=== PATIENT | female | born 1990 | race Asian ===

== ENCOUNTER → 2018-04-27 12:18 | Outpatient (CLI) | payer OTHER, SELFPAY ==
[2018-04-27 13:37] LABS: Hematocrit 37.5 % (36-46); Hemoglobin 12.6 g/dL (12.0-16.0)
[2018-04-27 13:59] LABS: GTT (PREG) 1 Hour PP 50gm Dose 122 mg/dL (76-139)
== END ==
PROVIDERS: PCP Obstetrics & Gynecology; Visit Provider Obstetrics & Gynecology
DX: Z34.02 Encounter for supervision of normal first pregnancy, second trimester (principal)
CPT/HCPCS: 36415; 82950; 85014; 85018

== ENCOUNTER → 2018-06-15 08:43 | Outpatient (CLI) | payer OTHER, SELFPAY ==
[2018-06-16 12:52] LABS: Strep Grp B PCR NEG for Grp B Strep
== END ==
PROVIDERS: PCP Obstetrics & Gynecology; Visit Provider Obstetrics & Gynecology
DX: Z34.03 Encounter for supervision of normal first pregnancy, third trimester (principal)
CPT/HCPCS: 87653

== ENCOUNTER 2018-07-14 18:07 | Inpatient (IN) | payer OTHER, SELFPAY ==
[2018-07-14] MEDS: miSOPROStol 25 MCG TABLET VAG (19:32)
[2018-07-14 21:29] LABS: Add Manual Diff / Slide Review NO; Basophils Percent Auto 0.7 % (0-2); Eosinophils Percent Auto 1.7 % (2-4); Hematocrit 39.8 % (36-46); Hemoglobin 13.4 g/dL (12.0-16.0); Lymphocytes Percent Auto 19.4 % (25-40); Mean Corpuscular HGB Conc 33.6 % (30-36); Mean Corpuscular Hemoglobin 30.1 PG (26-34); Mean Corpuscular Volume 89.6 fL (80-100); Monocytes Percent Auto 6.6 % (3-14); Neutrophils Absolute Auto 8400 /uL (3000-5900); Neutrophils Percent Auto 71.6 % (50-75); Platelet Count 253 X10^3/uL (150-400); Red Blood Cell Count 4.44 X10^6/uL (4.0-5.2); Red Cell Distribution Width 14.2 % (11.6-14.8); White Blood Cell Count 11.8 X10^3/uL (4.5-11.0)
[2018-07-15] MEDS: MORPHINE 2 MG/ML INJ IV (00:29)
[2018-07-15] MEDS: LEVOTHYROXINE 125 MCG TABLET PO (06:27)
[2018-07-15] MEDS: KETOROLAC 30 MG/ML VIAL IV ×2 (14:44→20:57)
[2018-07-15 16:09] VITALS: BP 110/76
[2018-07-16] MEDS: DERMOPLAST SPRAY 20% 60 ML 1 SPRAY TOP (02:58)
[2018-07-16 02:59] VITALS: TEMP 36.9
[2018-07-16] MEDS: KETOROLAC 30 MG/ML VIAL IV ×2 (02:59→09:10)
[2018-07-16 06:19] LABS: Hematocrit 31.5 % (36-46); Hemoglobin 10.7 g/dL (12.0-16.0)
[2018-07-16] MEDS: CALCITRIOL 0.25 MCG CAPSULE PO (09:11)
[2018-07-16] MEDS: PRENATAL VIT,CALC/IRON/FOLIC 1 TABLET 1 TAB PO (09:12)
[2018-07-16] MEDS: DOCUSATE 250 MG CAPSULE PO (09:12)
[2018-07-16] MEDS: LEVOTHYROXINE 125 MCG TABLET PO (09:12)
[2018-07-17 11:03] VITALS: BP 84/48; PULSE 88; RESP 16; TEMP 36.3
[2018-07-17] MEDS: CALCITRIOL 0.25 MCG CAPSULE PO (11:09)
[2018-07-17] MEDS: DOCUSATE 250 MG CAPSULE PO (11:09)
[2018-07-17] MEDS: PRENATAL VIT,CALC/IRON/FOLIC 1 TABLET 1 TAB PO (11:09)
[2018-07-17] MEDS: IBUPROFEN 600 MG TABLET PO (11:10)
--- NOTE | 2018-08-05 16:28 | PM.OBHP.1 ---
OB HPI Date/Time Date of admission: 07/14/18 Date Patient Seen: 07/15/18 Time Patient Seen: 07:30 History of Present Condition Chief complaint: eval of labor : 1 Para: 0 Estimated Date of Delivery: 07/20/18 Estimated Gestational Age (weeks): 39+ 1 Narrative: Olaf Cortez is a 28 year old female 1 para 0 at 39-,1/7 weeks gestation who presented for cervical ripening with Cytotec Indications Indication for induction OB: other ( ) History of Present care: good care, initiated at week # (9), number of visits (11) and pounds weight gain (38) Dating criteria: LMP confirmed by 1st trimester US Ultrasounds: normal 1st trimester US and normal mid trimester US Obstetrical complications: none Medical complications: none Preadmission Labs Blood type: A (+) positive -: Antibody screen: negative, GBS status: negative, HBsAG: negative, HIV: negative, HSV 1: positive, HSV 2: negative and RPR/VDLR: negative -: Chlamydia screen: not detected and Gonorrhea screen: not detected -: Rubella: immune and Varicella: immune HCT: 37.5 HCAB: negative PAP: Normal Quad screen: Normal Urine: Negative 1 hr GTT: 122 Evaluation Evaluation Baseline heart rate: 135 Variability: Moderate (11-25) monitor accelerations: Present monitor decelerations: Absent Contraction Frequency (minutes): 3 Uterine Contraction Intensity: Strong/Firm Category of Tracing: I Cervical dilation (cm): 9 Cervical effacement (%): 100 station: 0 Laboratory results: Laboratory Tests 07/14/18 07/14/18 07/16/18 21:15 21:15 06:02 WBC 11.8 H RBC 4.44 Hgb 13.4 10.7 L Hct 39.8 31.5 L MCV 89.6 MCH 30.1 MCHC 33.6 RDW 14.2 Plt Count 253 Neut % (Auto) 71.6 Lymph % (Auto) 19.4 L [place] % (Auto) 6.6 Eos % (Auto) 1.7 L Baso % (Auto) 0.7 Neut # (Auto) 8400 H Blood Type A Positive Antibody Screen Negative PFSH Social History Smoking Status: Never smoker Meds Home Medications Medication Instructions Recorded Confirmed Type breast pump #1 each 04/27/18 07/14/18 Rx calcitriol 0.25 mcg PO DAILY 07/14/18 07/14/18 History levothyroxine [Synthroid] 125 mcg PO DAILY 07/14/18 07/15/18 History Allergies Allergy/AdvReac Type Severity Reaction Status Date / Time No Known Drug Allergies Allergy Verified 07/14/18 18:40 Exam Vital Signs (past 8 hours): Generally: A well-developed, well-nourished female, comfortable with epidural Lungs: Clear to auscultation bilaterally Cardiovascular: Regular rate and rhythm Abdomen: Soft Fundal height: 38 cm Extremities: Trace edema, negative Homans Objective Labs Result Diagrams: 07/16/18 06:02 Assessment and Plan (1) 39 weeks gestation of : Current visit: No Status: Acute Plan: Plan: Assessment: 28-year-old 1 para 0 at 39-,2/7 weeks gestation status post 1 dose of Cytotec entering 2nd stage of labor Comfortable with epidural Plan: Expected management to spontaneous vaginal delivery
--- NOTE | 2018-08-05 16:34 | PM.OBPRVD ---
Delivery date: 07/15/18 Induction method: per misoprostol protocol Delivery monitor: external FHT and external uterine Route of delivery: forceps (Laufe) Indication for instrumentation: maternal exhaustion Episiotomy description: None Laceration description: Perineal - 2nd Degree Delivery repair: vicryl and chromic Estimated blood loss (mL): 500 Anesthesia type: Epidural Complications: None Narrative: Patient complete and pushed for 2 hr. Due to maternal exhaustion and head at +1 to +2 station, Laufe forceps were used to assist the delivery. The head delivered at 10:02 a.m.. The forceps were removed. A nuchal cord x1 was reduced on the perineum. No episiotomy. The remainder of the body delivered without difficulty and was placed on mom's abdomen. Pitocin was given in the IV fluids. The cord was double clamped and cut. Cord bloods were obtained. The placenta delivered intact with a 3 vessel cord at 10:20 a.m.. Estimated blood loss 500 cc. Second-degree laceration repaired in the usual fashion. Apgars 8 at 1 min 9 at 5 min. Weight 6 lb 10 oz. . Epidural analgesia. Mom and stable to recovery. Plan for aftercare: To routine care
--- NOTE | 2018-08-05 16:38 | PM.OBPN.1 ---
Subjective - OB Patient comments: no complaints baby status: doing well feeding status: exclusively breast feeding Date Patient Seen: 07/16/18 Time Patient Seen: 13:30 Exam Vital Signs (past 8 hours): Generally: Patient is sitting up in bed, holding infant, no acute distress Fundus: Firm at U -2 Extremities: Trace edema, negative Homans Objective Labs Result Diagrams: 07/16/18 06:02 Assessment & Plan (1) 39 weeks gestation of : Status: Acute Current Visit: No (2) Forceps delivery with baby delivered: Status: Acute Assessment and plan: Assessment: 28-year-old 1 para 1 day # 1 status post outlet forceps assisted delivery Mom and baby doing well Plan: Anticipate discharge 06/2018 Current Visit: No Plan day: 1 plan OB: routine care Time Spent With Patient Total time spent is greater than 50% in coordination of care (as documented) at patient's floor/unit and/or counseling patient: less than 15 minutes
--- NOTE | 2018-08-05 16:40 | PM.OBDS.1 ---
Discharge Providers Date of admission: 07/14/18 18:07 Primary care physician: Filomena Howard MD Consults: 07/15/18 12:59 Consult to Construction Technician Routine Comment: Discharge provider: Filomena Howard MD Summary Date Patient Seen: 07/17/18 Time Patient Seen: 09:30 Hospital Course: Patient is a 28-year-old 1 para 1 who presented on 07/14/2018 for cervical ripening with Cytotec. She received 1 dose and went into active labor. She progressed to 2nd stage. Pushed for 2 hr and due to maternal exhaustion outlet forceps were applied. Her post course was unremarkable. She is discharged home on postop day # 2. Peripartum Data Delivery Method: Assisted Delivery (Laufe forceps) Laceration description: Perineal - 2nd Degree Procedures: Outlet assisted forceps delivery Epidural analgesia Cytotec cervical ripening complications: none Discharge Diagnosis (1) 39 weeks gestation of : Status: Acute (2) Forceps delivery with baby delivered: Status: Acute Status at Discharge Functional status at discharge: independent ambulation Overall status at discharge: patient is progressing back to baseline Time Spent with Patient Total time spent providing and/or coordinating discharge services: Less than 30 minutes Objective Labs Result Diagrams: 07/16/18 06:02 Discharge Plan Discharge Plan Patient Disposition: Home Discharge comment: Call with fever, chills or bleeding vaginally more than a pad in an hour Ibuprofen/Tylenol for pain Discharge Med Rec/Prescriptions Prescriptions: No Action breast pump device .Route .MEDSUPPLY Qty: 1 RF: 0 levothyroxine [Synthroid] 125 mcg tablet 125 mcg PO DAILY RF: 0 calcitriol 0.25 mcg capsule 0.25 mcg PO DAILY RF: 0 Follow up/Referrals: Filomena Howard MD [Primary Care Provider] - 6 Weeks (Please make an appointment for 6 weeks with .) Provider Discharge Instructions Diet: Diet as Tolerated Activity: No intercourse Skin/Wound/Dressing Care Report to your healthcare provider any signs of infection, such as:: chills, fever, increased pain and unusual drainage Visit Report/Discharge Packet Instructions: DI for Labor and Delivery, Vaginal Visit Report Forms: Stroke Signs & Symptoms Discharge Data Primary Care Provider: Filomena Howard Attending Provider: Filomena Howard Admit Date/Time: 07/14/18 18:07 Discharges patient from system. Discharge Date/Time: 07/17/18 12:15
== END 2018-07-17 12:15 | disposition home or self-care (01) | DRG 775 ==
PROVIDERS: Admitting Provider Obstetrics & Gynecology; PCP Obstetrics & Gynecology; Visit Provider Obstetrics & Gynecology
DX: O69.81X0 Labor and delivery complicated by cord around neck, without compression, not applicable or unspecified (principal); O75.81 Maternal exhaustion complicating labor and delivery; Z3A.39 39 weeks gestation of pregnancy; Z37.0 Single live birth; O70.1 Second degree perineal laceration during delivery
CPT/HCPCS: 01967; 36415; 59050; 59400; 85014; 85018; 85025; 86850; 86900; 86901; G0379; J1885; J2270

== ENCOUNTER → 2019-11-13 11:16 | Outpatient (CLI) | payer OTHER, SELFPAY | PROVIDERS: PCP Obstetrics & Gynecology; Visit Provider Physician Assistant | DX: J02.9 Acute pharyngitis, unspecified (principal) | CPT/HCPCS: 87070 ==